=== PATIENT | male | born 1990 | race African-American/Black ===

== ENCOUNTER 2021-06-16 11:20 | Day surgery (SDC) | payer BC ==
[~2021-06-16 11:20] MED LIST: Acetaminophen 1,000 MG in Premix Bag 1 BAG IV ONE; Lactated Ringers 1,000 ML IV SCH; Pregabalin 75 MG Cap PO ONE; ceFAZolin 2 GM in Premix Bag 1 BAG IV ONE
[2021-06-16] MEDS ORDERED: fentaNYL 100 MCG/2 ML SDV IVPUSH PRN (11:40)
[2021-06-16] MEDS ORDERED: Naloxone 0.4 MG/ML SDV IVPUSH PRN (11:40)
[2021-06-16] MEDS ORDERED: Albuterol 0.083% 2.5 MG/3 ML Neb Soln NEB PRN (11:40)
[2021-06-16] MEDS ORDERED: Ondansetron 4 MG/2 ML SDV IVPUSH PRN (11:40)
[2021-06-16] MEDS ORDERED: Metoclopramide 10 MG/2 ML SDV IVPUSH PRN (11:40)
[2021-06-16] MEDS ORDERED: HYDROmorphone 1 MG/ML Syringe IVPUSH PRN (11:40)
--- NOTE | 2021-06-16 11:52 | PCM.PREANE ---
Preanesthetic Assessment - Procedure Proposed Procedure: Lap right Inguinal Hernia repair - Anesthesia/Transfusion/Family Hx Anesthesia History: No Prior Anesthesia Family History of Anesthesia Reaction: No Transfusion History: No Prior Transfusion(s) - Review of Systems General: No Symptoms Pulmonary: No Symptoms Cardiovascular: No Symptoms Gastrointestinal: No Symptoms Neurological: No Symptoms Other: Reports: None - Physical Assessment NPO Status Date: 06/15/21 NPO Status Time: 23:00 Vital Signs: Last Vital Signs Temp 97.9 F 06/16/21 11:36 Pulse 60 06/16/21 11:36 Resp 14 06/16/21 11:36 BP 114/66 06/16/21 11:36 Pulse Ox 100 06/16/21 11:36 Height: 5 ft 6 in Weight: 61.689 kg ASA Class: 1 Mental Status: Alert & Oriented x3 Airway Class: Mallampati = 3 Dentition: Reports: Normal Dentition Thyro-Mental Finger Breadths: 3 Mouth Opening Finger Breadths: 3 ROM/Head Extension: Full Lungs: Clear to Auscultation, Normal Respiratory Effort Cardiovascular: Regular Rate, Regular Rhythm - Allergies Allergies/Adverse Reactions: Allergies Allergy/AdvReac Type Severity Reaction Status Date / Time No Known Allergies Allergy Verified 06/10/21 11:54 - Acknowledgements Anesthesia Type Planned: General Anesthesia Pt an Appropriate Candidate for the Planned Anesthesia: Yes Alternatives and Risks of Anesthesia Discussed w Pt/Guardian: Yes Pt/Guardian Understands and Agrees with Anesthesia Plan: Yes PreAnesthesia Questionnaire HEENT History: Reports: None Cardiovascular History: Reports: None Respiratory History: Reports: None Gastrointestinal History: Reports: None Genitourinary History: Reports: None Musculoskeletal History: Reports: None Neurological History: Reports: None Psychiatric History: Reports: None Endocrine/Metabolic History: Reports: None Hematologic History: Reports: None Immunologic History: Reports: None Oncologic (Cancer) History: Reports: None Dermatologic History: Reports: None - Past Surgical History Head Surgeries/Procedures: Reports: None - SUBSTANCE USE Tobacco Use Status *Q: Never Tobacco User Recreational Drug Use History: No - HOME MEDS Home Medications: Home Meds . [No Known Home Meds] 06/10/21 [History] - CURRENT (IN HOUSE) MEDS Current Meds: Current Medications Lactated Ringer's (Ringers, Lactated) 1,000 mls @ 125 mls/hr IV ASDIRECTED [facility] Last Admin: 06/16/21 11:34 Dose: 125 mls/hr Documented by: Discontinued Medications Cefazolin Sodium/Dextrose 2 gm (/ Premix) 50 mls @ 100 mls/hr IV ONCALL ONE Stop: 06/16/21 10:08 Acetaminophen 1,000 mg/ Premix 100 mls @ 400 mls/hr IV ONCALL ONE Stop: 06/16/21 09:53 Last Admin: 06/16/21 11:35 Dose: 400 mls/hr Documented by: Pregabalin (Pregabalin 75 Mg Cap) 150 mg PO ONETIME ONE Stop: 06/16/21 09:40 Last Admin: 06/16/21 11:33 Dose: 150 mg Documented by:
[2021-06-16] MEDS ORDERED: Propofol 200 MG/20 ML SDV ONE (12:18)
[2021-06-16] MEDS ORDERED: Dexamethasone 4 MG/ML 5 ML MDV ONE (13:10)
[2021-06-16] MEDS ORDERED: Midazolam 1 MG/ML 2 ML SDV ONE (13:10)
[2021-06-16] MEDS ORDERED: Rocuronium Bromide 50 MG/5 ML Syringe ONE (13:10)
[2021-06-16] MEDS ORDERED: Ondansetron 4 MG/2 ML SDV ONE (13:10)
[2021-06-16] MEDS ORDERED: Lidocaine 2% 5 ML SDV ONE (13:10)
[2021-06-16] MEDS ORDERED: fentaNYL 100 MCG/2 ML SDV ONE (13:10)
[2021-06-16] MEDS ORDERED: Sugammadex Sodium 200 MG/2 ML VIAL ONE (13:10)
[2021-06-16] MEDS ORDERED: Bupivacaine 0.5% 30 ML SDV ONE (13:12)
[2021-06-16] MEDS ORDERED: Octyl 2-Cyanoacrylate 1 Tube ONE (13:12)
[2021-06-16] MEDS ORDERED: ePHEDrine 50 MG/ML SDV ONE (14:05)
[2021-06-16] MEDS ORDERED: Ketorolac 30 MG/ML SDV ONE (14:11)
--- NOTE | 2021-06-16 15:23 | PCM.OPNOTE ---
- General Post-Op/Procedure Note Date of Surgery/Procedure: 06/16/21 Operative Procedure(s): Laparoscopic inguinal hernia repair Findings: Right indirect inguinal hernia dictation number [id number] Pre Op Diagnosis: right inguinal hernia Post-Op Diagnosis: Right indirect inguinal hernia Anesthesia Technique: General ET Tube Primary Surgeon: Bill Ness Pathology: none EBL in mLs: 5 Complications: None Condition: Good
--- NOTE | 2021-06-16 15:46 | PCM.POSTAN ---
POST ANESTHESIA ASSESSMENT - MENTAL STATUS Mental Status: Somnolent - VITAL SIGNS Vital Signs: Last Vital Signs Temp 98.2 F 06/16/21 15:37 Pulse 65 06/16/21 15:43 Resp 12 06/16/21 15:43 BP 100/65 06/16/21 15:43 Pulse Ox 100 06/16/21 15:43 - RESPIRATORY Respiratory Status: Respiratory Rate WNL, Airway Patent, O2 Saturation Stable, Supplemental Oxygen - CARDIOVASCULAR CV Status: Pulse Rate WNL, Blood Pressure Stable - GASTROINTESTINAL GI Status: No Symptoms - POST OP HYDRATION Hydration Status: Adequate & Stable
--- NOTE | 2021-06-16 16:06 | PCM48HPAN ---
Post Anesthesia Note - EVALUATION WITHIN 48HRS OF ANESTHETIC Vital Signs in Normal Range: Yes Patient Participated in Evaluation: Yes Respiratory Function Stable: Yes Airway Patent: Yes Cardiovascular Function Stable: Yes Hydration Status Stable: Yes Pain Control Satisfactory: Yes Nausea and Vomiting Control Satisfactory: Yes Mental Status Recovered: Yes Vital Signs: Last Vital Signs Temp 98.2 F 06/16/21 15:37 Pulse 65 06/16/21 16:03 Resp 10 L 06/16/21 16:03 BP 112/68 06/16/21 16:03 Pulse Ox 100 06/16/21 16:03
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
== END 2021-06-16 17:37 | disposition home or self-care (01) ==
LOC: MW.SDS 11:20
PROVIDERS: ATTEND Surgery
DX: K40.90 Unilateral inguinal hernia, without obstruction or gangrene, not specified as recurrent (principal)
CPT/HCPCS: 49650; A9270; J0131; J0690; J1100; J1885; J2250; J2370; J2405; J2704; J3010; J3490; J7120; 00840